=== PATIENT | male | born 1975 | race Caucasian/White ===

== ENCOUNTER 2016-09-30 10:14 | Outpatient (CLI) | payer OTHER | END 2016-09-30 10:15 | disposition home or self-care (01) | DX: Z11.4 Encounter for screening for human immunodeficiency virus [HIV] (principal); Z11.3 Encounter for screening for infections with a predominantly sexual mode of transmission ==

== ENCOUNTER 2020-07-02 17:11 | Outpatient (CLI) | payer OTHER | END 2020-07-02 17:12 | disposition home or self-care (01) | LOC: COV 17:11 | PROVIDERS: ATTEND Family Medicine | DX: Z20.828 Contact with and (suspected) exposure to other viral communicable diseases (principal) ==

== ENCOUNTER 2020-09-10 08:00 | Outpatient (CLI) | payer OTHER ==
--- NOTE | 2020-09-10 17:07 | XRAY Report ---
PROCEDURE: Sacrum/Coccyx INDICATIONS: COCCYX PAIN TECHNIQUE: 3 views of the sacrum and coccyx acquired. COMPARISON: None. FINDINGS: Bones: No fractures or dislocations. No suspicious bony lesions. Soft tissues: Visualized bowel gas pattern is normal. No suspicious soft tissue densities. IMPRESSION: No acute disease, no sign of trauma. Reviewed by: Vic Nix MD on 09/10/2020 5:06 PM [facility] Approved by: Vic Nix MD on 09/10/2020 5:06 PM PST Station ID: [id number]
== END 2020-09-10 23:59 ==
LOC: DI.S 08:00
PROVIDERS: ATTEND Physician Assistant
DX: M53.3 Sacrococcygeal disorders, not elsewhere classified (principal)